=== PATIENT | male | born 1955 | race Caucasian/White ===

== ENCOUNTER → 2022-09-14 12:03 | Outpatient (CLI) | payer OTHER, SELFPAY ==
[2022-09-14 13:08] LABS: COVID19 -Nasal RAPID Negative (Negative)
== END ==
PROVIDERS: Referring Provider Orthopaedic Surgery Orthopaedic Surgery of the Spine; Visit Provider Orthopaedic Surgery Orthopaedic Surgery of the Spine
DX: Z20.822 Contact with and (suspected) exposure to COVID-19 (principal)
CPT/HCPCS: 87635; C9803

== ENCOUNTER 2022-09-16 10:28 | Day surgery (SDC) | payer OTHER, SELFPAY ==
[2022-09-08 13:36] VITALS: BMI 46.0
[2022-09-16] VITALS (9 sets, daily range): BP systolic 126–167; BP diastolic 75–90; PULSE 53–68; RESP 9–19; TEMP 36.1–36.7; O2SAT 94–99; BMI 46.0
[2022-09-16] MEDS: LACTATED RINGERS 1,000 ML 84 ML IV (11:23)
--- NOTE | 2022-09-16 14:00 | PM.PREOP ---
Pre-operative Note COVID-19 COVID-19 status: Negative Result date/Date tested (Pos, Neg/Pending): 09/15/22 Criteria for continued procedure: Expected advancement of disease process, Possibility delay results in more complex future surgery or treatment, Increased loss of function, Continuing or worsening of significant or severe pain, Deterioration of the patient's condition or overall health and Delay expected to result in less-positive ultimate med/surg outcome Interval Note History & Physical reviewed/Exam performed by Physician: Yes Changes to H&P: No
[2022-09-16] MEDS: CEFAZOLIN 3 GM IN 0.9 % NACL 3 GM/100 ML PLAST..BAG IV (14:45)
--- NOTE | 2022-09-16 15:04 | SUR.OPER ---
Prone on spine table, head in foam head support, padded chest and pelvic supports, gel pad at knees, lower legs supported by pillows; nipples, genitalia and toes free of pressure, arms secured on foam padded arm boards at <90 degrees abduction. Tape over blanket at thigh secured to table. Pt positioned per direction and supervision of Dr Cuevas.
[2022-09-16] MEDS: BUPIVACAINE LIPOSOME 266 MG/20 ML VIAL INJ (15:08)
[2022-09-16] MEDS: BUPIVACAINE 0.5% W/ EPI (PF) 30 ML VIAL INJ (15:08)
[2022-09-16] MEDS: methylPREDNISolone 125 MG/2 ML VIAL 40 MG INJ (15:09)
--- NOTE | 2022-09-16 16:01 | P.OP_ITS ---
Operative Date/Time/Diagnoses Date of procedure: 09/16/22 Time of procedure: 14:30 Pre-op diagnosis: 1. L4-5, L5-S1 spinal stenosis 2. L4-5, L5-S1 disc herniation with radiculopathy Post-op diagnosis: same Procedure & Clinicians Procedure: 1. L4-5 left hemilaminectomy with microdiscectomy 2. L5-S1 left hemilaminectomy with microdiscectomy 3. Utilization of microsurgical technique and operating microscope Same procedure as scheduled: Yes Indications: Patient has been having chronic back pain and worsening lumbar radiculopathy. Patient failed multiple conservative management with worsening pain weakness and numbness in his lower extremity. Patient has been having difficulty performing activity of daily living. After discussing risks benefits of treatment options, patient elected proceed with surgery. Surgeon: [employer] Professional: Liss Griffin Click Yes if Unassisted: No Anesthesia Type: General Operative Notes Closure Type: primary Estimated Blood Loss (mL): 5 Blood products transfused: none Procedure in detail: Patient was seen in the preoperative area. Risks and benefits of the surgery was discussed with the patient. Informed consent was obtained from the patient and placed in the chart. Surgical site was marked. Patient was taken to the operative room. General anesthesia was administered. Prophylactic antibiotic was given to the patient less than 30 min before the incision was made. Patient was placed into a prone position on the Owen table. Patient's back was then prepped and draped in the sterile fashion. Time-out was performed at this time. Using AP and lateral C-arm imaging the interval between L4-5 L5-S1 was identified and marked on patient's back. A 1 inch incision 1 in from midline was made on the left side. The fascia was incised in line with skin incision. Globus MARS retractors was placed inside the incision and docked onto the L4 lamina. Using microsurgical technique and operating microscope, a L4 hemilaminectomy was performed using a Kerrison rongeur. Liagamentum flavum was resected at the site of the laminotomy. There was significant calcification in the ligamentum flavum which was carefully resected during the process of a minimal laminectomy for decompression purposes. The disc space at L4-5 was identified. Microdiscectomy was performed by incising the annulus with #11 blade. Microcurettes and pituitary was used to removed herniated disc fragments of disc from the epidural space. The disc fragments also was found to be part ially calcified which made the resection more difficult. Small fragments was removed carefully while protecting the dura and the nerve root. After the microdiskectomy at L4-5 was completed, the area medial lateral superior and inferior to the area of the microdiskectomy was inspected and explored using a micro curette. No other impinging structure was identified. A separate incision was made over the L5-S1 level. The MARs retractor was then redirected over the L5-S1 level under x-ray guidance and docked on the L5 lamina. Using microsurgical technique and operating microscope, a L5 laminotomy was performed using a Kerrison rongeur. Liagamentum flavum was resected at the site of the laminotomy. The disc space at L5-S1 was identified. Microdiscectomy was performed by incising the annulus with #11 blade. Microcurettes and pituitary was used to removed herniated disc fragments of disc from the epidural space. After the microdiskectomy at L5-S1 was completed, the area medial lateral mcelroy perior and inferior to the area of the microdiskectomy was inspected and explored using a micro curette. No other impinging structure was identified. The wound was then irrigated with sterile normal saline. 40 mg Depo-Medrol was placed into the epidural space. The deep fascia was closed with 1-0 Vicryl. The subcutaneous tissue was closed with 2-0 Vicryl. The skin was closed with skin dulce maria. Patient tolerated the procedure well. There were no complications. Patient was transferred recovery room in stable condition. Complications: none Post-operative Condition: stable Disposition: PACU Plan for aftercare: Discharge to home
--- NOTE | 2022-09-16 16:27 | DI.RAD.S_ITS ---
PROCEDURE: XR LUMBAR SPINE 1V INDICATIONS: L4-L5, L5-S1 LEFT HEMILAMINECTOMY TECHNIQUE: Single lateral spot view of the lower lumbar spine. COMPARISON: [facility] BALDEMAR Hernandez, XR LUMBAR SPINE WITH OBLIQUES PLUS FLEXION EXTENSION, 02/25/2022, 11:38. FINDINGS: Spot fluoroscopic intraoperative image demonstrates the lower lumbar spine with posterior surgical device at the L4-5 and L5-S1 disc space levels. IMPRESSION: Expected intraoperative appearance of the lower lumbar spine. Approved by: Milo Ramirez M.D. on 09/16/2022 at 17:11
[2022-09-16] MEDS: OXYCODONE/ACETAMINOPHEN 5/325 TABLET 2 TAB PO (16:33)
== END 2022-09-16 17:33 | disposition home or self-care (01) ==
PROVIDERS: PCP Nurse Practitioner; Referring Provider Orthopaedic Surgery Orthopaedic Surgery of the Spine; Visit Provider Orthopaedic Surgery Orthopaedic Surgery of the Spine
PROC: (CPT 63030; principal; 2022-09-16 13:30)
DX: M51.16 Intervertebral disc disorders with radiculopathy, lumbar region (principal); M48.061 Spinal stenosis, lumbar region without neurogenic claudication
CPT/HCPCS: 63030; 63035; 72020; 76000; C9290; J0690; J1100; J2250; J2405; J2704; J2930; J3010